=== PATIENT | male | born 1950 | race Caucasian/White ===

== ENCOUNTER → 2017-02-09 | Outpatient (CLI) | payer OTHER, BC ==
[~2017-02-09] MED LIST: ACTOS 30 MG TAB30 M1 PO; ADULT LOW DOSE81 MG PO; ASPIRIN EC81 M1 PO; ASPIRIN81 MG PO; CALCIUM 600 +1 EAC1 PO; CERTAGEN NG; EFFIENT10 MG PO; FISH OIL 1,0001 EAC5 PO; FISH OIL SOFTG1 EACH PO; FISH OIL500 M1 PO; GARLIC OIL1 EACH; GARLIC OIL1 EACH PO; GLUCOTROL10 MG PO; HYDROCODON-ACE1 EAC7 PO; INVOKANA100 MG; JANUMET XR 50-1 EAC1; JANUVIA50 MG PO; LISINOPRIL10 MG PO; LISINOPRIL20 MG PO; MULTIVITAMINS PO; MULTIVITAMINS1 EAC7; NEXIUM40 MG PO; NITROGLYCERIN0.4 MG PO; NORCO 7.5-3251 EACH PO; NORFLEX100 MG PO; PHOSLO; PREDNISONE 20 M20 M1 PO; SIMVASTATIN20 MG PO; ST. JOHN'S WOR150 MG PO; ST. JOHN'S WORT1 GM; VICTOZA0.6 MG/0.1 SQ; VICTOZA0.6 MG/0.1 SUBQ
== END ==
LOC: NUC 07:06
DX: I25.10 Atherosclerotic heart disease of native coronary artery without angina pectoris (principal)

== ENCOUNTER → 2017-08-17 | Outpatient (CLI) | payer OTHER, BC ==
--- NOTE | ~2017-08-17 | 2DMMODE ---
[facility] [place] [address] 2 D/M-MODE ECHOCARDIOGRAM Name: STEFANI ARVIZU Room #: REG [facility]#: [id number] Admission: 08/17/17 Attend Phys: Nando Wilcox MD Discharge: Date of : 50 Date of Service: 08/17/17 1006 Report #: [id number] THIS REPORT FOR: //name// APPROVED REPORT Study performed: 08/17/2017 08:56:36 EXAM: Comprehensive 2D, Doppler, and color-flow Echocardiogram Patient Location: Out-Patient Status: routine BSA: 2.20 HR: 60 bpm BP: 144/84 mmHg Rhythm: NSR Other Information Study Quality: Adequate Indications CAD Hx: Stent, DM, HTN, HLP 2D Dimensions RVDd: 35.75 mm LVEF(%): 55.46 (>50%) IVSd: 10.96 (7-11mm) LVOT Diam: 23.65 (18-24mm) LVDd: 54.88 mm PWd: 11.15 (7-11mm) Ascending Ao: 40.19 (22-36mm) LVDs: 38.86 (25-40mm) Aortic Root: 38.04 mm Kruse's LVEF: 55.46 % Volumes Left Atrial Volume (Systole) Single Plane 4CH: 38.37 mL Single Plane 2CH: 52.15 mL LA ESV Index: 23.00 mL/m2 Aortic Valve AoV Peak Hector.: 1.21 m/s AO Peak Gr.: 5.83 mmHg LVOT Max P.12 mmHg LVOT Max V: 1.02 m/s VICENTE Vmax: 3.69 cm2 Mitral Valve E/A Ratio: 0.8 [facility] [place] [place] [address] 2 D/M-MODE ECHOCARDIOGRAM Name: LUHSTEFANI MAURO Room #: REG [facility]#: [id number] Admission: 08/17/17 Attend Phys: Nando Wilcox MD Discharge: Date of : 50 Date of Service: 08/17/17 1006 Report #: [id number] MV Decel. Time: 209.39 ms MV E Max Hector.: 0.70 m/s MV A Hector.: 0.86 m/s MV PHT: 60.72 ms IVRT: 106.11 ms Pulmonary Valve PV Peak Hector.: 1.09 m/s PV Peak Gr.: 4.75 mmHg Pulmonary Vein P Vein S: 0.61 m/s P Vein A: 0.29 m/s P Vein D: 0.45 m/s P Vein A Dur.: 124.6 msec P Vein S/D Ratio: 1.36 Tricuspid Valve TR Peak Hector.: 1.90 m/s RAP Estimate: 5.00 mmHg TR Peak Gr.: 14.48 mmHg PA Pressure: 19.00 mmHg Left Ventricle The left ventricle is normal size. There is normal left ventricular wall thickness. Left ventricular systolic function is normal. LVEF is 55%. Mild diastolic dysfunction is present (impaired relaxation pattern). Right Ventricle The right ventricle is normal size. The right ventricular systolic function is normal. Atria The left atrium size is normal. The right atrium size is normal. Aortic Valve The aortic valve is normal in structure. No aortic regurgitation is present. There is no aortic valvular stenosis. Mitral Valve The mitral valve is normal in structure. Trace mitral regurgitation. No evidence of mitral valve stenosis. Tricuspid Valve The tricuspid valve is normal in structure. Trace tricuspid regurgitation. Estimated PAP is 20mmHg. Pulmonic Valve [address] [address] 2 D/M-MODE ECHOCARDIOGRAM Name: STEFANI ARVIZU MAURO Room #: REG CL [facility]#: [id number] Admission: 08/17/17 Attend Phys: Nando Wilcox MD Discharge: Date of : 50 Date of Service: 08/17/17 1006 Report #: [id number] The pulmonary valve is normal in structure. There is no pulmonic valvular regurgitation. Great Vessels Aortic root measures at the upper limits of normal. The ascending aorta is mildly dilated at 4.0cm. IVC is normal in size and collapses >50% with inspiration. Pericardium There is no pericardial effusion. <Conclusion> The left ventricle is normal size. Left ventricular systolic function is normal. Mild diastolic dysfunction is present (impaired relaxation pattern). The right ventricle is normal size. The aortic valve is normal in structure. Trace mitral regurgitation. Trace tricuspid regurgitation. Estimated PAP is 20mmHg. <ELECTRONICALLY SIGNED> By: Nando Wilcox MD 08/17/17 1006 1006 1006 Nando Wilcox MD /INF
== END ==
LOC: CV 08:44
DX: I25.10 Atherosclerotic heart disease of native coronary artery without angina pectoris (principal); E11.9 Type 2 diabetes mellitus without complications; I10 Essential (primary) hypertension; E78.5 Hyperlipidemia, unspecified

== ENCOUNTER → 2019-02-11 | Outpatient (CLI) | payer OTHER, BC ==
--- NOTE | 2019-02-11 11:13 | EXE ---
[facility] [address] [employer] [address] STRESS ECHOCARDIOGRAM Name: STEFANI ARVIZU Room #: REG CL Joi#: [id number] ������������� Admission: 02/11/19 ������������� Attend Phys: Nando Wilcox MD Discharge: ��� ������������� ��� Date of : 50 Date of Service: 02/11/19 1113 �� Report #: [id number] �������� ��������������������������������������������[id number] THIS REPORT FOR: //name// APPROVED REPORT Study performed: 02/11/2019 10:26:14 Exam: Stress Echocardiogram Indication: CAD s/p PCI Patient Location: Out-Patient Stress Nurse: Simran Odom RN Room #: Echo lab 2 Status: routine Ht: 5 ft 10 in HR: 60 bpm BP: 128/86 mmHg Medical History Medical History: CAD s/p stent, HTN, Diabetes, Hyperlipidemia Exercise History: Physically active Procedure The patient underwent an Exercise Stress Test using the Brian Protocol. Blood pressure, heart rate, and EKG were monitored. An Echocardiogram was performed by boiler control technician in four stages in quad fashion. At peak stress, four selected images were obtained and placed side by side with resting images for comparison. Stress Test Details Stress Test: Exercise stress testing was performed using a Brian protocol. HR Resting HR: 60 bpm Max Heart Rate (APMHR): 151 bpm Max HR Achieved: 142 bpm Target HR (85% APMHR): 128 bpm % of APMHR: 94 Recovery HR: 75 bpm HR response to stress: Normal HR response to stress BP Resting BP: 128/86 mmHg Max BP: 164/72 mmHg Recovery BP: 142/72 mmHg BP response to stress: Normal blood pressure response to stress. [facility] [address] [address] STRESS ECHOCARDIOGRAM Name: LUHSTEFANI MAURO Room #: REG CL [facility]#: [id number] ������������� Admission: 02/11/19 ������������� Attend Phys: Nando Wilcox MD Discharge: ��� ������������� ��� Date of : 50 Date of Service: 02/11/19 1113 �� Report #: [id number] �������� ��������������������������������������������[id number] ECG Resting ECG: Sinus Rhythm Stress ECG: Sinus Rhythm, nonspecific ST-T abnormalities ST Change: Non-ischemic Clinical Reason for Termination: Maximal effort Exercise duration: 10 min sec Highest Stage Achieved: Stage 4: 4.2 mph at 16% grade. Exercise capacity: 13.6 METs Overall Exercise Capacity for Age: Good Pre-Stress Echo The resting Echocardiogram showed normal left ventricular contractility with an estimated Ejection Fraction of about >55%. Normal wall motion in all segments on baseline images. Post-Stress Echo The stress Echocardiogram showed normal left ventricular contractility with an estimated Ejection Fraction of about 65-70%. Normal augmentation of wall motion in all segments on post stress images. Clinical Normal augmentation of myocardial wall segments using a 17 segment model. Conclusion Clinical Response: Non-ischemic Exercise Capacity: Above average Stress ECG Response: Non-ischemic Stress Echo Images: Non-ischemic The left ventricle is normal in size and wall thickness in both the rest and stress images. Other Information Study Quality: Adequate <Conclusion> The left ventricle is normal in size and wall thickness in both the rest and stress images. ��������������������������������������������� <ELECTRONICALLY SIGNED> ���������������������������������������� By: Nando Wilcox MD ��������������������������������������������� 02/11/19 1113 1113 1113 Nando Wilcox MD /INF
== END ==
LOC: CV 07:29
DX: I25.10 Atherosclerotic heart disease of native coronary artery without angina pectoris (principal); I10 Essential (primary) hypertension; E11.9 Type 2 diabetes mellitus without complications; Z88.2 Allergy status to sulfonamides; Z95.1 Presence of aortocoronary bypass graft

== ENCOUNTER → 2019-08-12 | Outpatient (CLI) | payer OTHER, BC ==
--- NOTE | 2019-08-12 14:00 | 2DMMODE ---
[facility] [place] [address] 2 D/M-MODE ECHOCARDIOGRAM Name: STEFANI ARVIZU [id number] Admission: 08/12/19 Attend Phys: Nando Wilcox MD Discharge: Date of : 50 Report #: [id number] THIS REPORT FOR: //name// APPROVED REPORT Study performed: 08/12/2019 13:11:03 EXAM: Comprehensive 2D, Doppler, and color-flow Echocardiogram Patient Location: Out-Patient Room #: Echo lab 2 Status: routine BSA: 2.19 HR: 58 bpm BP: 118/64 mmHg Rhythm: Bradycardia Other Information Study Quality: Good Indications Diabetes Dyspnea CAD Hypertension/HDD 2D Dimensions RVDd: 40.32 mm IVSd: 11.29 (7-11mm) LVOT Diam: 24.00 (18-24mm) LVDd: 52.68 mm PWd: 10.66 (7-11mm) Ascending Ao: 34.18 (22-36mm) LVDs: 36.51 (25-40mm) Aortic Root: 33.35 mm IVC: 18.00 mm Volumes Left Atrial Volume (Systole) Single Plane 4CH: 37.60 mL Single Plane 2CH: 35.32 mL LA ESV Index: 19.00 mL/m2 Aortic Valve AoV Peak Hector.: 1.22 m/s AO Peak Gr.: 5.97 mmHg LVOT Max P.54 mmHg LVOT Max V: 1.07 m/s VICENTE Vmax: 3.94 cm2 Mitral Valve [facility] [address] [place] [address] 2 D/M-MODE ECHOCARDIOGRAM Name: LUHSTEFANI MAURO Room #: REG CL [facility]#: [id number] Admission: 08/12/19 Attend Phys: Nando Wilcox MD Discharge: Date of : 50 Report #: [id number] E/A Ratio: 0.8 MV Decel. Time: 325.41 ms MV E Max Hector.: 0.60 m/s MV A Hector.: 0.76 m/s MV PHT: 94.37 ms IVRT: 119.95 ms Pulmonary Valve PV Peak Hector.: 1.09 m/s PV Peak Gr.: 4.78 mmHg Pulmonary Vein P Vein S: 0.49 m/s P Vein A: 0.31 m/s P Vein D: 0.37 m/s P Vein A Dur.: 147.6 msec P Vein S/D Ratio: 1.32 Tricuspid Valve TR Peak Hector.: 2.21 m/s TR Peak Gr.: 19.55 mmHg PA Pressure: 25.00 mmHg Left Ventricle The left ventricle is normal size. There is normal LV segmental wall motion. There is normal left ventricular wall thickness. The left ventricular systolic function is normal. The left ventricular ejection fraction is within the normal range. LVEF is 55-60%. Grade I - abnormal relaxation pattern. Right Ventricle The right ventricle is normal size. The right ventricular systolic function is normal. Atria The left atrium size is normal. The right atrium size is normal. Aortic Valve The aortic valve is normal in structure. No aortic regurgitation is present. There is no aortic valvular stenosis. Mitral Valve The mitral valve is normal in structure. Trace mitral regurgitation. No evidence of mitral valve stenosis. Tricuspid Valve The tricuspid valve is normal in structure. There is trace tricuspid regurgitation. Estimated PAP 25 mmHg. There is no pulmonary [facility] [address] [place] [address] 2 D/M-MODE ECHOCARDIOGRAM Name: STEFANI ARVIZU Room #: REG [facility]#: [id number] Admission: 08/12/19 Attend Phys: Nando Wilcox MD Discharge: Date of : 50 Report #: [id number] hypertension. Pulmonic Valve The pulmonary valve is normal in structure. There is no pulmonic valvular regurgitation. Great Vessels The aortic root is normal in size. IVC is normal in size and collapses >50% with inspiration. Pericardium There is no pericardial effusion. <Conclusion> The left ventricle is normal size. There is normal left ventricular wall thickness. The left ventricular systolic function is normal. Grade I - abnormal relaxation pattern. The right ventricle is normal size. The left atrium size is normal. The aortic valve is normal in structure. Trace mitral regurgitation. There is trace tricuspid regurgitation. Estimated PAP 25 mmHg. <ELECTRONICALLY SIGNED> By: Nando Wilcox MD 08/12/19 1400 1400 1400 Nando Wilcox MD /INF
== END ==
LOC: CV 13:06
DX: R06.09 Other forms of dyspnea (principal); R06.00 Dyspnea, unspecified; I25.10 Atherosclerotic heart disease of native coronary artery without angina pectoris; E11.9 Type 2 diabetes mellitus without complications; I10 Essential (primary) hypertension; Z88.8 Allergy status to other drugs, medicaments and biological substances; Z88.2 Allergy status to sulfonamides

== ENCOUNTER → 2020-02-20 | Outpatient (CLI) | payer OTHER, BC | LOC: SJCVC 09:32 | DX: I10 Essential (primary) hypertension (principal); I25.10 Atherosclerotic heart disease of native coronary artery without angina pectoris; E11.9 Type 2 diabetes mellitus without complications; E78.00 Pure hypercholesterolemia, unspecified; K21.9 Gastro-esophageal reflux disease without esophagitis; Z79.82 Long term (current) use of aspirin; Z79.899 Other long term (current) drug therapy ==

== ENCOUNTER 2020-07-13 13:30 | Emergency (ER) | payer OTHER, BC ==
[~2020-07-13] VITALS: Ht 180.3 cm; Wt 94.3 kg
[2020-07-13 14:07] LABS: ABSOLUTE NEUTROPHILS 3.5 thou/uL (1.4-8.2); BASOPHILS 0.7 % (0.0-2.0); EOSINOPHILS 3.8 % (0.0-3.0); HEMATOCRIT 46.4 % (42.0-52.0); HEMOGLOBIN 15.7 gm/dL (14.0-18.0); LYMPHOCYTES 26.4 % (24.0-44.0); MCH 30.4 pg (26.0-34.0); MCHC 33.9 g/dL (28.0-37.0); MCV 89.6 fL (80.0-100.0); MONOCYTES 9.8 % (1.0-8.0); PLATELET COUNT 185 thou/uL (150-400); POLYS 59.3 % (36.0-66.0); RBC 5.17 mil/uL (4.50-6.00); RDW 14.1 % (10.5-14.5); WBC 5.8 thou/uL (4.0-11.0)
[2020-07-13 14:10] LABS: ANION GAP 9 mmol/L (7-16); BUN 12 mg/dL (7-18); CALCIUM 9.1 mg/dL (8.5-10.1); CHLORIDE 102 mmol/L (98-107); CO2 28 mmol/L (21-32); CREATININE 0.9 mg/dL (0.7-1.3); GLUCOSE 204 mg/dL (74-106); POTASSIUM 4.1 mmol/L (3.5-5.1); SODIUM 139 mmol/L (136-145)
[2020-07-13 14:20] LABS: ALBUMIN 4.5 g/dL (3.4-5.0); SGOT 21 U/L (15-37); SGPT 33 U/L (30-65); TOTAL BILIRUBIN 0.7 mg/dL (0.2-1.0); TOTAL PROTEIN 7.4 g/dL (6.4-8.2); TROPONIN-I <0.06 ng/mL (<0.06)
--- NOTE | 2020-07-13 15:37 | EKG ---
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: PARESH : 1950 Requested By: Koko Koroma Order Number: [id number] MD: Derik Jordan Measurements Intervals [place] Rate: 58 P: 44 AR: 169 QRS: 2 QRSD: 105 T: 33 QT: 443 QTc: 436 Interpretive Statements Sinus bradycardia Otherwise normal tracing Compared to ECG 09/18/2012 07:40:18 T-wave abnormality no longer present Electronically Signed On 07-13-2020 15:37:10 CDT by Derik Jordan [email or web address] <ELECTRONICALLY SIGNED> By: Derik Jordan MD, [facility] 07/13/20 1537 1341 134 Derik Jordan MD, [facility] /EPI
[2020-07-13] MEDS ORDERED: AMOXICILLIN 50500 MG PO (17:00)
[2020-07-13] MEDS ORDERED: MECLIZINE HCL25 M1 PO (17:02)
[2020-07-13 17:21] VITALS: BP 139/71
== END 2020-07-13 17:22 | disposition home or self-care (01) ==
LOC: ER 13:30
PROVIDERS: Emergency Medicine
DX: R42 Dizziness and giddiness (principal); H66.91 Otitis media, unspecified, right ear; I10 Essential (primary) hypertension; E11.9 Type 2 diabetes mellitus without complications; Z79.82 Long term (current) use of aspirin; Z79.899 Other long term (current) drug therapy; Z87.891 Personal history of nicotine dependence; Z88.8 Allergy status to other drugs, medicaments and biological substances; Z88.2 Allergy status to sulfonamides; Z91.041 Radiographic dye allergy status

== ENCOUNTER → 2020-08-25 | Outpatient (CLI) | payer OTHER, BC ==
[~2020-08-25] MED LIST changes: +AMOXICILLIN 50500 MG PO; +MECLIZINE HCL25 M1 PO
== END ==
LOC: SJCVC 09:12
PROVIDERS: ATTEND Internal Medicine Cardiovascular Disease
DX: I25.10 Atherosclerotic heart disease of native coronary artery without angina pectoris (principal); R94.31 Abnormal electrocardiogram [ECG] [EKG]; I10 Essential (primary) hypertension; E78.00 Pure hypercholesterolemia, unspecified; E11.9 Type 2 diabetes mellitus without complications; K21.9 Gastro-esophageal reflux disease without esophagitis; Z79.899 Other long term (current) drug therapy; Z87.891 Personal history of nicotine dependence

== ENCOUNTER → 2021-02-26 | Outpatient (CLI) | payer OTHER, BC | LOC: SJCVCIMAG 08:13 | PROVIDERS: ATTEND Internal Medicine Cardiovascular Disease | DX: I25.10 Atherosclerotic heart disease of native coronary artery without angina pectoris (principal); I10 Essential (primary) hypertension; E78.00 Pure hypercholesterolemia, unspecified; R60.9 Edema, unspecified; K21.9 Gastro-esophageal reflux disease without esophagitis; E78.5 Hyperlipidemia, unspecified; Z79.82 Long term (current) use of aspirin; Z79.84 Long term (current) use of oral hypoglycemic drugs; Z79.899 Other long term (current) drug therapy; Z88.2 Allergy status to sulfonamides; Z88.8 Allergy status to other drugs, medicaments and biological substances; Z72.89 Other problems related to lifestyle; Z87.891 Personal history of nicotine dependence ==

== ENCOUNTER → 2021-03-15 | Outpatient (CLI) | payer OTHER, BC | LOC: SJCVC 08:25 | PROVIDERS: ATTEND Internal Medicine Cardiovascular Disease | DX: K21.9 Gastro-esophageal reflux disease without esophagitis (principal); I25.10 Atherosclerotic heart disease of native coronary artery without angina pectoris; E78.00 Pure hypercholesterolemia, unspecified; E11.9 Type 2 diabetes mellitus without complications; E78.5 Hyperlipidemia, unspecified; Z87.891 Personal history of nicotine dependence; Z72.89 Other problems related to lifestyle ==

== ENCOUNTER → 2021-05-17 | Outpatient (CLI) | payer OTHER, BC | LOC: SJCVC 09:49 | PROVIDERS: ATTEND Internal Medicine Cardiovascular Disease | DX: I25.10 Atherosclerotic heart disease of native coronary artery without angina pectoris (principal); K21.9 Gastro-esophageal reflux disease without esophagitis; Z88.1 Allergy status to other antibiotic agents; Z88.2 Allergy status to sulfonamides; Z88.8 Allergy status to other drugs, medicaments and biological substances ==

== ENCOUNTER → 2021-09-06 | Outpatient (CLI) | payer OTHER, BC | LOC: SJCVC 09:42 | PROVIDERS: ATTEND Internal Medicine Cardiovascular Disease | DX: R94.31 Abnormal electrocardiogram [ECG] [EKG] (principal); I25.10 Atherosclerotic heart disease of native coronary artery without angina pectoris; I10 Essential (primary) hypertension; E78.00 Pure hypercholesterolemia, unspecified; E11.9 Type 2 diabetes mellitus without complications; K21.9 Gastro-esophageal reflux disease without esophagitis; E78.5 Hyperlipidemia, unspecified; Z79.82 Long term (current) use of aspirin; Z79.84 Long term (current) use of oral hypoglycemic drugs; Z79.899 Other long term (current) drug therapy; Z87.891 Personal history of nicotine dependence; Z72.89 Other problems related to lifestyle; Z88.2 Allergy status to sulfonamides; Z88.8 Allergy status to other drugs, medicaments and biological substances ==